=== PATIENT | female | born 1985 | race Caucasian/White ===

== ENCOUNTER 2023-12-16 07:21 | Emergency (ER) | payer OTHER ==
[~2023-12-16] VITALS: Ht 154.9 cm; Wt 118.3 kg
[2023-12-16] MEDS ORDERED: OZEMPIC0.25 MG/02 SUB-Q (07:46)
[2023-12-16] MEDS ORDERED: CLEOCIN HCL300 MG PO (08:11)
[2023-12-16 08:20] VITALS: BP 148/109
== END 2023-12-16 08:21 | disposition home or self-care (01) ==
LOC: ED 07:21
DX: K04.7 Periapical abscess without sinus (principal); Z88.0 Allergy status to penicillin; Z88.2 Allergy status to sulfonamides; Z79.899 Other long term (current) drug therapy
CPT/HCPCS: 99283

== ENCOUNTER 2024-05-06 02:26 | Emergency (ER) | payer OTHER ==
[~2024-05-06] VITALS: Ht 154.9 cm; Wt 117.0 kg
[~2024-05-06 02:26] MED LIST: CLEOCIN HCL300 MG PO; OZEMPIC0.25 MG/02 SUB-Q
[2024-05-06] MEDS ORDERED: OZEMPIC2 MG/0.75 (02:34)
[2024-05-06] MEDS ORDERED: METFORMIN HCL500 M1 PO (02:35)
[2024-05-06] MEDS ORDERED: LISINOPRIL10 MG PO (02:35)
[2024-05-06] MEDS ORDERED: SODIUM CHLORIDE 0.9% 1,000 ML IV ONE (02:45)
[2024-05-06 02:57] LABS: BASOPHILS 0.8 % (0-2); EOSINOPHILS 1.7 % (0-6); HEMATOCRIT 43.4 % (35.0-50.0); HEMOGLOBIN 14.6 g/dL (12.0-18.0); LYMPHOCYTES 19.9 % (24-44); MCH 30.4 (27-36); MCHC 33.6 g/dl (30-36); MCV 90.5 fl (81-99); MONOCYTES 3.9 % (0-12); NEUTROPHILS 73.7 % (39-80); PLATELET COUNT 415 K/uL (140-440); RBC 4.79 M/ul (4.3-5.7); RDW 14.5 (10.5-15.0)
[2024-05-06 03:20] LABS: ALBUMIN 3.6 g/dL (3.4-5.0); ALBUMIN/GLOBULIN RATIO 0.77 (1.1-2.4); ALKALINE PHOSPHATASE 93 U/L (46-116); ALT (SGPT) 29 U/L (14-59); ANION GAP 11.7 (7-21); AST (SGOT) 11 U/L (15-37); BILIRUBIN, TOTAL 0.2 ng/dL (0.2-1.0); BUN/CREATININE RATIO 17.82 (6.0-28.6); CALCIUM 9.4 mg/dL (8.5-10.1); CARBON DIOXIDE 29 mmol/L (21-32); CHLORIDE 100 mmol/L (98-107); CREATININE, SERUM 1.01 mg/dL (0.55-1.02); GLOMERULAR FILTRATION RATE,EST 73 mL/min (>60); MAGNESIUM 1.8 mg/dL (1.8-2.4); POTASSIUM 3.7 mmol/L (3.5-5.1); PROTEIN, TOTAL 8.3 g/dL (6.4-8.2); TSH, 3RD GENERATION 1.978 uIU/mL (0.358-3.740); UREA NITROGEN 18 mg/dL (7-18)
[2024-05-06] MEDS ORDERED: PROPRANOLOL HCL10 MG PO (03:23)
[2024-05-06] MEDS ORDERED: PROPRANOLOL HCL 10 MG TAB PO ONE (03:30)
[2024-05-06 03:50] VITALS: BP 131/88
--- NOTE | 2024-05-06 23:13 | EKG ---
[facility] [address] [place] [address] Signed Sinus tachycardia with premature atrial complexes Otherwise normal ECG No previous ECGs available Confirmed by Nichole Rider MD () on 05/06/2024 11:12:56 PM Electronically Signed By: NICHOLE RIDER MD 05/06/24 2313 PATIENT NAME: PASHA DIGGS Electrocardiogram DATE OF : 83 PHYSICIAN: NICHOLE RIDER MD REPORT #: [id number] REPORT IS CONFIDENTIAL AND NOT TO BE RELEASED WITHOUT AUTHORIZATION
== END 2024-05-06 03:50 | disposition home or self-care (01) ==
LOC: ED 02:26
PROVIDERS: Family Medicine
DX: R00.2 Palpitations (principal); R07.89 Other chest pain; E11.9 Type 2 diabetes mellitus without complications; Z88.0 Allergy status to penicillin; Z88.2 Allergy status to sulfonamides; Z79.899 Other long term (current) drug therapy; Z79.84 Long term (current) use of oral hypoglycemic drugs
CPT/HCPCS: 36415; 71045; 80053; 83735; 84443; 84484; 85025; 85379; 93005; 93010; 99285-25; J7030